=== PATIENT | male | born 2000 | race Caucasian/White ===

== ENCOUNTER 2019-08-13 21:11 | Emergency (ER) | payer SELFPAY ==
--- NOTE | 2019-08-13 21:28 | NUR ---
DARCIE REM FROM HOME FOR C/O INTENTIONAL OD ON 8PTS OF DREW AND 5PTS OF EXTACY IN AN ATTEMPT TO HARM SELF. PT. OPENS EYES TO PAINFUL STIMULI AND GAG REFLEX INTACT. PT. ABLE TO FOLLOW SIMPLE COMMANDS. PER EMS FSBS 92. EKG DONE ON ARRIVAL AND PRESENTED TO ERMD. SONDRA DON WAS IN TO EVAL PT. CONTINUOUS PULSE OX, B/P, AND HEART MONITORS APPLIED. PT. IN NSR ON MONITOR. IV ESTABLISHED EN ROUTE AND 500ML NS ADMIN. LOGISTICS MANAGER MADE AWARE PT. IS SA. PT. MOVED TO ED 40 FOR SECURITY AND SITTER MONITORING. REPORT TO BÁRBARA BURGOS TO ASSUME PT. CARE.
[2019-08-13 21:44] LABS: BASOPHILS % (AUTO) 0 % (0-1); EOSINOPHILS % (AUTO) 0 % (1-7); LYMPHOCYTES # (AUTO) 1.14 x10^3/uL (1-6.1); LYMPHOCYTES % (AUTO) 12 % (22-44); MD NO; MEAN CORPUSCULAR HEMOGLOBIN 30.7 pg (27.5-34.5); MEAN CORPUSCULAR HGB CONC 34.4 g/dL (33.2-36.2); MEAN CORPUSCULAR VOLUME 89.3 fL (81-97); MEAN PLATELET VOLUME 7.2 fL (7.4-10.4); MONOCYTES # (AUTO) 0.52 x10^3/uL (0-1.4); MONOCYTES % (AUTO) 5 % (2-9); NEUTROPHILS # (AUTO) 8.08 x10^3/uL (1.8-8.0); NEUTROPHILS % (AUTO) 83 % (42-75); PLATELET COUNT 281 x10^3/uL (130-400); RED BLOOD COUNT 4.71 x10^6/uL (4.38-5.82); RED CELL DISTRIBUTION WIDTH 12.3 % (9.4-14.8)
[2019-08-13 21:53] LABS: ALANINE AMINOTRANSFERASE 46 U/L (12-78); ALBUMIN 3.8 g/dL (3.4-5.0); ANION GAP 8 mmol/L (5-15); CALCIUM 7.8 mg/dL (8.5-10.1); CHLORIDE 110 mmol/L (98-107); CREATININE 0.91 mg/dL (0.7-1.3)
[2019-08-13 21:54] LABS: SALICYLATE LEVEL < 1.7 mg/dL (2.8-20.0)
[2019-08-13 21:56] LABS: ALKALINE PHOSPHATASE 78 U/L (45-117); BILIRUBIN,TOTAL 0.5 mg/dL (0.2-1.0); TOTAL PROTEIN 7.1 g/dL (6.4-8.2)
[2019-08-13] MEDS ORDERED: SODIUM CHLORIDE 0.9% 1,000ML IVBOLUS ONE (22:00)
--- NOTE | 2019-08-13 22:27 | NUR ---
PT A&O x4, GCS 15. PT DENIES AN ATTEMPT TO HARM HIMSELF AND IS ASKING TO GO HOME. PT VSS AND WILL CONT TO MONITOR x 6 HOURS PER POISON CONTROL. PT AWARE OF PLAN OF CARE.
--- NOTE | 2019-08-13 23:08 | NUR ---
[facility] leaving number for poc and pt to be picked up [phone].
--- NOTE | 2019-08-13 23:21 | NUR ---
Varsha [phone]
[2019-08-13 23:55] LABS: BARBITURATE SCREEN, URINE Negative (Negative); BENZODIAZEPINE SCREEN, URINE Negative (Negative); CANNABINOID SCREEN, URINE Negative (Negative); COCAINE SCREEN, URINE Negative (Negative); METHADONE SCREEN, URINE Negative (Negative); OPIATE SCREEN, URINE Negative (Negative)
[2019-08-13 23:56] LABS: AMPHETAMINE SCREEN, URINE Positive (Negative)
--- NOTE | 2019-08-14 00:26 | NUR ---
PT SLEEPING ON JARRETT RAO. TELEPSYCH ROBOT IN ROOM FOR EVAL.
--- NOTE | 2019-08-14 01:18 | NUR ---
REPORT GIVEN TO SOC.
--- NOTE | 2019-08-14 01:40 | NUR ---
REPORT RECEIVED FROM BÁRBARA HAMLIN. ASSUMED CARE OF PT. AWAITING SOC REPORT AT THIS TIME
--- NOTE | 2019-08-14 02:10 | NUR ---
PER REQUEST OF PA AND TELEPSYCH HAS BEEN REPAGED TO DISCUSS POC
--- NOTE | 2019-08-14 03:10 | NUR ---
PER ERP, PT IS TO BE PLACED ON HOLD FOR NOW DUE TO STATEMENTS MADE TO FRIENDS IN REGARDS TO HARMING HIMSELF VIA OD. PT ADVISED OF THESE CHANGES BY THE PA. PT BECAME AGITATED AND CUSSING "NO FUCK THAT, YOU CAN'T KEEP ME HERE". PT WAS EDUCATED ON THE LEGAL HOLD PROCESS TO INCLUDE THE COLLECTION OF HIS BELONINGS. PT PROVIDED WITH GOWN, SOCKS AND A PT BELONGING BAG. PT CHANGED AND PLACED CLOTHING INTO BAG. PT STILL HAD WATCH, NECKLACE AND BRACELET ON. PT ASKED TO REMOVE THEM. PT BECAME UPSET AGAIN AND STATED "I'M NOT GIVING YOU THAT". PT FINALLY COMPLIED AND JEWELRY TO INCLUDE APPLE WATCH WAS PLACED IN BAG BY PT. PT STATES HE DOES NOT HAVE HIS PHONE. REQUESTS TO USE THE PHONE. PT ASKING "WHAT HAPPENS IF I JUST BOOK IT OUT OF HERE AND HAVE A FRIEND PICK ME UP". PT WAS EDUCATED ON THE PROCESS IF HE ATTEMPTS TO LEAVE. IV WAS REMOVED, OK PER PA. PT PROVIDED WITH WARM BLANKETS AND ENCOURAGED TO TRY TO REST. PT ANXIOUS STATING "I HAVE SHIT TO DO, I DON'T NEED TO BE HERE. I HAVE RESPONSIBILITIES". PT ALLOWED TO MAKE A PHONE CALL WITH THIS RN PRESENT.
--- NOTE | 2019-08-14 03:17 | NUR ---
TELEPSYCH HAS NOT RETURNED PAGE. REPAGED TELEPSYCH AT THIS TIME.
--- NOTE | 2019-08-14 03:20 | NUR ---
1 BAG OF CLOTHING PLACED IN LOCKER, ON TOP SHELF. BAG INCLUDES CLOTHING, JEWELRY AND APPLE WATCH
--- NOTE | 2019-08-14 03:29 | NUR ---
PT CALMING DOWN. STANDING IN DOORWAY OF ROOM SPEAKING WITH SITTER.
--- NOTE | 2019-08-14 04:02 | NUR ---
TELEPSYCH CALLED BACK AT THIS TIME
--- NOTE | 2019-08-14 04:13 | NUR ---
PT FRIEND HERE, PT WAS ADVISED HE COULD HAVE A VISITOR LONG HE WAS COOPERATIVE. SITTER OUTSIDE DOOR MONITORING PT WELL A [place] ROOM. DOORS DOWN AND ROOM REMAINS SECURE.
--- NOTE | 2019-08-14 04:36 | NUR ---
AARTI WITH POISON CONTROL CALLED BACK. DISCUSSED OUTCOME. THEY ARE CLOSING THE CASE AT THIS TIME. CASE# [id number]
[2019-08-14] MEDS ORDERED: LORazepam 1MG TABLET PO PRN (05:00)
--- NOTE | 2019-08-14 06:08 | NUR ---
AWAITING FOR FULL TO FAX REFERRAL PACKET. REGISTRATION IS ATTEMTPING TO LOCATE PTS INSURANCE CARD
--- NOTE | 2019-08-14 06:33 | NUR ---
TP: PT SELF PAY ONLY. REFERRAL PACKET FAXED TO [facility]. PLEASE MAKE SURE FAX WENT THROUGH [facility]' FAX HAS NOT BEEN WORKING
--- NOTE | 2019-08-14 06:44 | NUR ---
TP:FAX TO [facility] DID NOT GO THROUGH
--- NOTE | 2019-08-14 06:59 | NUR ---
REPORT FROM BÁRBARA DRIVER. ASSUMED CARE OF PATIENT AT THIS TIME. PATIENT SLEEPING COMFORTABLY IN [facility]. VISIBLE CHEST RISE AND FALL. SITTER AT DOORWAY.
[2019-08-14 08:00] VITALS: BP 121/70
--- NOTE | 2019-08-14 08:00 | NUR ---
PATIENT PROVIDED BREAKFAST TRAY, ALL SAFETY MEASURES IN PLACE, VS UPDATED IN CHART, NADN. SITTER AT DOORWAY WITH PATIENT IN SIGHT. NO ADDITIONAL NEEDS AT THIS TIME. HOSPITAL BED REQUESTED.
--- NOTE | 2019-08-14 09:50 | NUR ---
PATIENT SITTING IN HOSPITAL BED, REQUESTING TO BE REEVALUATED, DENIES SI/HI AT THIS TIME. AWARE. NADN. AWAITING FURTHER ORDERS, NO ADDITIONAL NEEDS AT THIS TIME. SITTER REMAINS AT DOORWAY WITH PATIENT IN SIGHT.
--- NOTE | 2019-08-14 10:34 | NUR ---
PATIENT ANXIOUS, WANTING TO BE RE-EVALUATED. PATIENT COOPERATIVE, SPOKE TO ERP, EDUCATED PATIENT REGARDING DISCUSSION WITH PROVIDER, PATIENT TO NOT BE RE-EVALUATED AT THIS TIME. PATIENT AWARE AWAITING PLACEMENT AT PSYCH FACILITY. OFFERED PRN ATIVAN ORDERED, PATIENT REFUSING AT THIS TIME. PATIENT GIVEN PERMISSION FOR PHONE CALL, PATIENT AMB WITH STEADY GAIT TO PHONE. SITTER REMAINS WITH PATIENT, ALEXANDER. PATIENT REMAINS COOPERATIVE.
--- NOTE | 2019-08-14 12:15 | NUR ---
PSYCH MD DISCONTINUED LEGAL HOLD, PATIENT PROVIDED LUNCH TRAY AND TO BE DC'D AFTER LUNCH. FAMILY TO PICK PATIENT UP PER PATIENT, NADN. LOPEZ REMAINS AT DOORWAY AT THIS TIME.
--- NOTE | 2019-08-14 12:41 | NUR ---
Legal hold discontinues. Patient given discharge instructions and they have confirmed that they understand the instructions. All personal belongings given to patient. Patient ambulatory with steady gait to DC desk, family to drive patient home for safe DC.
== END 2019-08-14 12:44 | disposition home or self-care (01) ==
LOC: EDSEX 21:11 → ED 08-14 06:20
DX: T43.641A Poisoning by ecstasy, accidental (unintentional), initial encounter (principal)
CPT/HCPCS: 36415; 80053; 80307; 85025; 93005; 99284